=== PATIENT | female | born 1975 | race Caucasian/White ===

== ENCOUNTER 2024-08-01 10:39 | Emergency (ER) | payer BC, SELFPAY ==
[2024-08-01 10:39] VITALS: BMI 57.6
[2024-08-01 10:42] VITALS: BP 139/79
[2024-08-01 12:00] VITALS: BP 129/81
[2024-08-01 12:17] LABS: % Eosinophils 2.4 % (0-6); % Immature Granulocytes 0.2 % (0-0.5); % Lymphocytes 25.6 % (20.5-51.1); % Monocytes 6.8 % (1.7-9.3); Absolute Basophils 0.1 10^3/uL (0-0.2); Absolute Eosinophils 0.2 10^3/uL (0-0.7); Absolute Lymphocytes 2.3 10^3/uL (1.2-3.4); Absolute Monocytes 0.6 10^3/uL (0.1-0.6); Absolute Neutrophils 5.8 10^3/uL (1.4-6.5); Hematocrit 44.2 % (37.0-47.0); Hemoglobin 15.6 g/dL (12.0-16.0); Mean Corp Hgb Conc. 35.3 g/dL (33.0-37.0); Mean Corpuscular Hgb 32.2 pg (27.0-31.0); Mean Corpuscular Volume 91.1 fL (81.0-99.0); Mean Platelet Volume 9.7 fL (7.4-10.4); Nucleated Red Blood Cells % 0 %; Platelet Count 243 10^3/uL (130-400); Red Blood Cell Count 4.85 10^6/uL (4.20-5.40)
[2024-08-01 12:45] LABS: ALT (SGPT) 73 U/L (0-35); AST (SGOT) 49 U/L (14-36); Albumin 4.4 g/dl (3.5-5.0); Alkaline Phosphatase 82 U/L (38-126); Blood Urea Nitrogen 27 mg/dl (7-17); Calcium 10.4 mg/dl (8.4-10.2); Carbon Dioxide 27 mmol/L (22-30); Chloride 100 mmol/L (98-107); Estimated Creatinine Clearance 110 ml/min; Glucose 182 mg/dl (70-99); Lipase 151 U/L (23-300); Potassium 4.5 mmol/L (3.5-5.1); Sodium 136 mmol/L (135-145); Total Bilirubin 0.8 mg/dl (0.2-1.3); Total Protein 6.7 g/dl (6.3-8.2); eGFR > 60.00
[2024-08-01 12:55] LABS: Urine Albumin Negative (Neg - Trace); Urine Bilirubin Negative (Negative); Urine Character Clear (Clear); Urine Color Yellow; Urine Glucose Negative (Negative); Urine Ketone Negative (Negative); Urine Leukocyte Negative (Negative); Urine Nitrite Negative (Negative); Urine Occult Blood Negative (Negative); Urine Specific Gravity 1.015 (<1.030); Urine Urobilinogen Negative (Neg - 1+)
--- NOTE | 2024-08-01 13:15 | ED.GENMED ---
History of Present Illness
General
Chief Complaint: Abdominal Symptoms
Time Seen by Provider: 08/01/24 11:24
History of Present Illness
History of Present Illness:
49-year-old female presents to the emergency department for evaluation of upper abdominal pain intermittently over the past several days. It is particular worse after eating but tends to resolve after some time. She is also concerned for increased
bloating and distention particularly of her known umbilical hernia. No fevers or chills. No bowel movement changes or melena. No chest pain or shortness of breath. Prior history of cholecystectomy
Past History
Past History
ED Past Medical History: Asthma and HTN
ED Past Surgical History: Cholecystectomy and Tonsilectomy
Patient has exhibited threatening behavior?: No
PSI?: No
Social History
Tobacco: Smoker
Alcohol: Occasional
Employment: Employed
Review of Systems
Review of Systems
Allergies reviewed?: Yes
All Other Systems: ROS reviewed and negative except as documented in HPI and ROS
Phy Exam
Physical Exam
Physical Exam:
GEN: Well appearing, NAD, WDWN
HEENT: Oral mucosa moist, no scleral icterus
Cardiac: Regular rate
Lung: No respiratory distress, no tachypnea
Abdomen: Morbid obesity limits exam, large soft and reducible umbilical/incisional hernia, mild epigastric tenderness, no rigidity
MSK: No gross deformity or injuries
Skin: Good color, no pallor or jaundice, no rashes
Neuro: AO x3, moves all extremities freely
Psych: Calm, cooperative
Course
Orders/Labs/Results
Orders:
Orders
08/01/24 11:59
Complete Blood Count/With Diff Urgent
08/01/24 12:22
Comprehensive Metabolic Panel Urgent
Lipase Urgent
08/01/24 12:38
Urinalysis Reflex To Culture Urgent
Date Specimen was Collected: 08/01/24
Time Specimen was Collected: 12:36
Abnormal Lab Results
08/01/24 08/01/24
11:59 12:22
MCH 32.2 H pg
(27.0-31.0)
BUN 27 H mg/dl
(7-17)
Glucose 182 H mg/dl
(70-99)
Calcium 10.4 H mg/dl
(8.4-10.2)
AST 49 H U/L
(14-36)
ALT 73 H U/L
(0-35)
08/01/24 11:59
08/01/24 12:22
Vital Signs
Initial and Last Documented VS:
Initial Vital Signs
Temp Pulse Resp BP Pulse Ox
98.5 F 116 18 139/79 100
08/01/24 10:42 08/01/24 10:42 08/01/24 10:42 08/01/24 10:42 08/01/24 10:42
Last Documented Vital Signs
Temp Pulse Resp BP Pulse Ox
98.5 F 96 18 129/81 97
08/01/24 10:42 08/01/24 12:00 08/01/24 10:42 08/01/24 12:00 08/01/24 12:00
MDM/Problems Addressed
MDM/Problems Addressed:
Symptoms and history are most compatible with gastritis/peptic ulcer disease. Labs are reassuring. Do not see indication for ultrasound. Will start on PPIs and recommend primary care follow-up
*Critical Care Note
Total Time (30-74mins, 75-104mins- exclusive of procedures): Not Applicable
ED Attending Note
-
Portions of this chart may have been created with voice recognition software.� Occasional wrong word or��sound alike� substitutions may have occurred due to the inherent limitations of voice recognition software.
Discharge Plan
Departure
Patient Disposition: Home (Routine Discharge)
Date of Disposition: 08/01/24
Time of Disposition: 13:15
Patient with high blood pressure during this ER visit?: No
Discharge Problem:
Acute upper abdominal pain
Instructions: Gastritis ED
Prescriptions:
New
pantoprazole 40 mg tablet,delayed release (DR/EC)
40 mg PO DAILY Qty: 14 0RF
No Action
codeine-guaifenesin 10-100 mg/5 mL liquid
5 - 10 ml PO HS PRN (Reason: cough)
Patient Comments:
07/18/2022: last filled 07/17/22, 120 ml for 12 days from [id number]
atorvastatin 80 mg Tablet
80 mg PO HS
nicotine 14 mg/24 hr patch 24 hour
14 mg transdermal DAILY
albuterol sulfate 2.5 mg /3 mL (0.083 %) Solution For Nebulization
2.5 mg INHALATION R Q4 PRN (Reason: sob/wheezing)
levothyroxine 300 mcg Tablet
300 mcg PO DAILY
lisinopril 20 mg Tablet
20 mg PO DAILY
fexofenadine 180 mg Tablet
180 mg PO HS
albuterol sulfate 90 mcg/actuation Hfa Aerosol Inhaler
2 puff INHALATION R Q4 PRN (Reason: sob/wheezing)
fluticasone propionate 50 mcg/actuation [place],Suspension
1 spray INTRANASAL HS
cholecalciferol (vitamin D3) [Vitamin D3] 25 mcg (1,000 unit) Tablet
25 mcg PO DAILY
fluticasone furoate-vilanterol [Breo Ellipta] 200-25 mcg/dose blister with device
1 ea INHALATION R DAILY
doxycycline hyclate 100 mg Capsule
100 mg PO Q12 Qty: 6 0RF
famotidine 20 mg Tablet
20 mg PO BID Qty: 14 0RF
prednisone 10 mg tablet
10 mg PO DAILY Qty: 15 0RF
Rx Instructions:
40 daily for 1 day, 30 daily for 2 days, 20 daily for 2 days 10 daily for a day and stop.
Referrals:
NONE,* [Family Provider] -
Interventions
Interventions:
*Risk Screen - Suicide Last Done: 08/01/24 10:42
*General Assessment Last Done: 08/01/24 10:42
*Neglect/Abuse Screening Last Done: 08/01/24 10:42
*ED COVID-19 Vaccine History Last Done: 08/01/24 11:09
*Nursing Disposition Last Done: 08/01/24 13:29
NV-Zzxkyt-Unzswjfrzd Assessment Last Done: 08/01/24 11:09
Discharge Date and Time
Discharge Date/Time: 08/01/24 13:30
Print Language: LATVIAN
== END 2024-08-01 13:30 | disposition home or self-care (01) ==
LOC: EMR 10:39
PROVIDERS: Physician Assistant; EMERGENCY PHYSICIAN Emergency Medicine
DX: R10.10 Upper abdominal pain, unspecified (principal); J45.909 Unspecified asthma, uncomplicated; I10 Essential (primary) hypertension; F17.200 Nicotine dependence, unspecified, uncomplicated; Z90.49 Acquired absence of other specified parts of digestive tract
CPT/HCPCS: 99283; 80053; 81003; 83690; 85025